=== PATIENT | female | born 1980 | race Caucasian/White ===

== ENCOUNTER 2022-08-06 09:14 | Outpatient (REF) | payer BC, SELFPAY ==
--- NOTE | 2022-08-06 08:55 | TONG_PTH ---
PATIENT: Elham Paez LOC: [facility] U#:[id number] AGE/SX: 41/F ROOM: RE08/06/[address]: Codie Nam : 1980 BED: DIS: 08/06/2022 SPEC #: [id number] RECD: 08/06/22 18:04 STATUS: CHAD REEric #: [id number] DONOVAN: 08/06/22 08:[address]: Codie Nam DEPT: Surgical Specimen RECD BY: Isamar James ENTERED: 08/06/22 18:05 SP TYPE: FELICE SOL DR: Leobardo aH Tissues: 1 - TONGUE BIOPSY Procedures: GROSS AND MICRO LEVEL 4 Comments: [id number]
== END 2022-08-06 09:15 | disposition home or self-care (01) ==
LOC: LBN 09:14
PROVIDERS: PCP Nurse Practitioner; Referring Provider Otolaryngology; Visit Provider Registered Nurse Maternal Newborn
DX: D10.1 Benign neoplasm of tongue (principal); K14.8 Other diseases of tongue
CPT/HCPCS: 88305